=== PATIENT | female | born 1950 | race Hispanic/Latino ===

== ENCOUNTER 2017-11-09 09:43 | Observation (INO) | payer MEDICARE, OTHER ==
--- NOTE | 2017-11-09 10:53 | ED PDOC ---
HPI: General Adult Time Seen by Provider: 11/09/17 10:31 Chief Complaint (Nursing): Chest Pain History Per: Patient Additional Complaint(s): Pt. states on Thursday she developed diffuse generalized weakness and yesterday at noon time she developed mid-sternal chest pain. Pt. states she was doing a "puzzle" sitting down when she felt the pain. Pain was minimal yesterday but this morning upon awakening pain became worse. She also developed SOB upon walking from her room to the kitchen which she is normally able to do without difficulty. Pt. states she sat down and pain/SOB improved. Further reports she took 2 tabs of aspirin which she swallowed. Further reports her visiting RN advised her to call 911 and come to ED. En route to ED pt. was given 2 chewable Aspirins as per patient. Pt. has never had a stress test done. Denies cough, fever, abdominal pain, headache, numbness, tingling, N/V. Past Medical History Reviewed: Historical Data, Nursing Documentation, Vital Signs Vital Signs: Last Vital Signs Temp 98.6 F 11/09/17 20:02 Pulse 86 11/09/17 20:02 Resp 20 11/09/17 20:02 BP 94/65 L 11/09/17 20:02 Pulse Ox 95 11/09/17 20:02 - Medical History PMH: [place]'s Disease, Bipolar Disorder, Hypercholesterolemia, Schizophrenia - Surgical History Surgical History: Cholecystectomy Other surgeries: hysterectomy - Family History Family History: States: [place] (brother of "massive heart attack" in his 40's) - Living Arrangements Living Arrangements: With Family - Social History Ex-Smoker (has not smoked in the last 12 months): Yes Drugs: Denies - Home Medications Home Medications: Ambulatory Orders Medication Instructions Recorded Acetaminophen with Codeine 1 tab PO DAILY 11/09/17 [Tylenol with Codeine #3 Tablet] Atorvastatin [Lipitor] 20 mg PO DAILY 11/09/17 Fenofibrate,Micronized 134 mg PO HS 11/09/17 [Fenofibrate] Hydrocortisone [Cortef] 20 mg PO HS 11/09/17 Hydrocortisone [Cortef] 30 mg PO QAM 11/09/17 Levocetirizine Dihydrochloride 5 mg PO DAILY 11/09/17 [Xyzal] Levothyroxine [Synthroid] 25 mg PO DAILY 11/09/17 Lurasidone HCl [Latuda] 20 mg PO QAM 11/09/17 Lurasidone HCl [Latuda] 80 mg PO HS 11/09/17 Midodrine [Proamatine] 5 mg PO Q12 11/09/17 Multivitamin [Daily Bharat] 1 tab PO DAILY 11/09/17 Omeprazole [Omeprazole] 40 mg PO DAILY 11/09/17 Oxybutynin [Ditropan Tab] 5 mg PO Q12 11/09/17 Quetiapine Fumarate [Quetiapine 800 mg PO HS 11/09/17 Fumarate ER] Sertraline [Zoloft] 200 mg PO QAM 11/09/17 Trazodone HCl [Trazodone HCl] 150 mg PO HS 11/09/17 Vitamin E [Vitamin E 400 Units Cap] 400 unit PO DAILY 11/09/17 - Allergies Allergies/Adverse Reactions: Allergies Allergy/AdvReac Type Severity Reaction Status Date / Time No Known Allergies Allergy Unverified 06/06/14 11:01 Review of Systems ROS Statement: Except As Marked, All Systems Reviewed And Found Negative Constitutional: Positive for: Weakness Cardiovascular: Positive for: Chest Pain Respiratory: Positive for: SOB with Exertion Physical Exam - Reviewed Nursing Documentation Reviewed: Yes Vital Signs Reviewed: Yes - Physical Exam Appears: Positive for: Well, Non-toxic, No Acute Distress Head Exam: Positive for: ATRAUMATIC, NORMAL INSPECTION, NORMOCEPHALIC Skin: Positive for: Normal Color, Warm. Negative for: Rash Eye Exam: Positive for: EOMI, Normal appearance, PERRL ENT: Positive for: Normal ENT Inspection Neck: Positive for: Normal, Painless ROM Cardiovascular/Chest: Positive for: Regular Rate, Rhythm Respiratory: Positive for: CNT, Normal Breath Sounds Gastrointestinal/Abdominal: Positive for: Normal Exam, Soft. Negative for: Tenderness Back: Positive for: Normal Inspection Extremity: Positive for: Normal ROM Neurologic/Psych: Positive for: Alert, Oriented, Other (equal diagram clerk strength b/l) . Negative for: Aphasia, Facial Droop - Laboratory Results Result Diagrams: 11/09/17 11:17 11/09/17 11:17 - ECG ECG: Positive for: Interpreted By Me ECG Rhythm: Positive for: Sinus Rhythm. Negative for: ST/T Changes Rate: 85 O2 Sat by Pulse Oximetry: 97 - Radiology X-Ray: Interpreted by Me (CXR) X-Ray Interpretation: No Acute Disease - Progress ED Course And Treament: Labs, CXR ordered. Pt. placed on breaker oiler. 1209 CT head w/o contrast: Age related neuro degenerative changes are reiterated without acute intracranial findings as discussed above. Right frontal chronic lacune reiterated as well. 1253 Case d/w Dr Farfan, covering for Dr. Payton, and arrangements made for 23 hr observation. Disposition - Clinical Impression Clinical Impression: Chest pain - Patient ED Disposition Is Patient to be Admitted: Yes - Disposition Disposition Time: 12:53 Condition: STABLE - Pt Status Changed To: Hospital Disposition Of: Observation
[2017-11-09 11:25] LABS: BASO # 0.1 K/uL (0.0-0.2); BASO % 0.6 % (0.0-2.0); EOS # 0.2 K/uL (0.0-0.7); EOS % 2.6 % (0.0-4.0); HEMOGLOBIN 15.3 g/dL (12.0-16.0); LYMPH # 2.5 K/uL (1.0-4.3); LYMPH % 25.3 % (20.0-40.0); MEAN CELL VOLUME 88.3 fl (81.0-99.0); MEAN CORPUSCULAR HEMOGLOBIN 29.8 pg (27.0-31.0); MEAN CORPUSCULAR HGB CONC 33.7 g/dL (33.0-37.0); MONO # 0.6 K/uL (0.0-0.8); MONO % 6.4 % (0.0-10.0); NEUT # 6.3 K/uL (1.8-7.0); NEUT % 65.1 % (50.0-75.0); NRBC % 0.1 % (0.0-0.0); RBC 5.14 Mil/uL (3.80-5.20); WHITE BLOOD COUNT 9.7 K/uL (4.8-10.8)
--- NOTE | 2017-11-09 11:35 | CT ---
PROCEDURE: CT HEAD WITHOUT CONTRAST. HISTORY: weakness COMPARISON: Unenhanced head CT 01/23/2015 TECHNIQUE: Axial computed tomography images were obtained through the head/brain without intravenous contrast. Radiation dose: Total exam DLP = 815.44 mGy-cm. This CT exam was performed using one or more of the following dose reduction techniques: Automated exposure control, adjustment of the mA and/or kV according to patient size, and/or use of iterative reconstruction technique. FINDINGS: HEMORRHAGE: No intracranial hemorrhage. BRAIN: Diffuse cerebral atrophy and chronic microangiopathy are reiterated. No mass is identified or suspicious extra-axial fluid collection in the midline brain and appears diffusely unremarkable nevertheless. Posterior fossa contents remain unremarkable including the brainstem. A likely chronic lacune is again seen the right frontal vertex laterally. VENTRICLES: Unremarkable. No hydrocephalus. CALVARIUM: Unremarkable. PARANASAL SINUSES: Limited bilateral ethmoid sinus disease identified. MASTOID AIR CELLS: Unremarkable as visualized. No inflammatory changes. OTHER FINDINGS: None. IMPRESSION: Age related neuro degenerative changes are reiterated without acute intracranial findings as discussed above. Right frontal chronic lacune reiterated as well. Follow up CT or MRI are available if clinically warranted.
[2017-11-09 11:56] LABS: ALB/GLOB RATIO 1.3 (1.0-2.1); ALBUMIN 4.5 g/dL (3.5-5.0); ALT/SGPT 30 U/L (9-52); AST/SGOT 37 U/L (14-36); BLOOD UREA NITROGEN 30 mg/dl (7-17); CALCIUM 10.1 mg/dL (8.4-10.2); GFR AFRICAN-AMERICAN > 60; GFR NON-AFRICAN AMERICAN > 60
--- NOTE | 2017-11-09 12:12 | RAD ---
HISTORY: chest pain COMPARISON: Comparison chest 11/21/2010 FINDINGS: LUNGS: No active pulmonary disease. PLEURA: No significant pleural effusion identified, no pneumothorax apparent. CARDIOVASCULAR: Normal. OSSEOUS STRUCTURES: No significant abnormalities. VISUALIZED UPPER ABDOMEN: Normal. OTHER FINDINGS: None. IMPRESSION: No active disease.
--- NOTE | 2017-11-09 14:00 | CP.PCM.HP ---
History of Present Illness - History of Present Illness History of Present Illness: 67 yo female with history of Davie's Disease and HLD came in because of mid- sternal chest pain, non-radiating, on and off, lasting for several minutes since yesterday. Condition was associated with mild SOB and anxiety. Denied fever or chills or diaphoresis. There was no nausea or vomiting. Present on Admission - Present on Admission Any Indicators Present on Admission: No History of DVT/PE: No History of Uncontrolled Diabetes: No Urinary Catheter: No Decubitus Ulcer Present: No Review of Systems - Review of Systems All systems: reviewed and no additional remarkable complaints except (aside from those mentioned above, 12 point system review were negative by me) Past Patient History - Past Medical History & Family History Past Medical History?: Yes - Past Social History Smoking Status: Former Smoker Alcohol: None Drugs: Denies - CARDIAC Hx Hypercholesterolemia: Yes - PULMONARY Hx Respiratory Disorders: No - NEUROLOGICAL Hx Neurological Disorder: No - HEENT Hx HEENT Problems: No - RENAL Hx Chronic Kidney Disease: No - ENDOCRINE/METABOLIC Hx Endocrine Disorders: Yes Other/Comment: GENOVEVA'S DISEASE - HEMATOLOGICAL/ONCOLOGICAL Hx Blood Disorders: No - INTEGUMENTARY Hx Dermatological Problems: No - MUSCULOSKELETAL/RHEUMATOLOGICAL Hx Musculoskeletal Disorders: No - GASTROINTESTINAL Hx Gastrointestinal Disorders: No - GENITOURINARY/GYNECOLOGICAL Hx Genitourinary Disorders: No - PSYCHIATRIC Hx Anxiety: Yes Hx Bipolar Disorder: Yes Hx Schizophrenia: Yes - SURGICAL HISTORY Hx Cholecystectomy: Yes Hx Hysterectomy: Yes - ANESTHESIA Hx Anesthesia: Yes Hx Anesthesia Reactions: No Hx Malignant Hyperthermia: No Meds Allergies/Adverse Reactions: Allergies Allergy/AdvReac Type Severity Reaction Status Date / Time No Known Allergies Allergy Unverified 06/06/14 11:01 Physical Exam - Constitutional Appears: No Acute Distress, Other (morbidly obese) - Head Exam Head Exam: ATRAUMATIC - Eye Exam Eye Exam: absent: Scleral icterus - ENT Exam ENT Exam: Mucous Membranes Moist - Neck Exam Neck exam: Negative for: Meningismus - Respiratory Exam Respiratory Exam: absent: Rales, Rhonchi, Wheezes, Respiratory Distress - Cardiovascular Exam Cardiovascular Exam: REGULAR RHYTHM, +S1, +S2 - GI/Abdominal Exam GI & Abdominal Exam: Soft. absent: Tenderness - Rectal Exam Rectal Exam: Deferred - Extremities Exam Extremities exam: Negative for: calf tenderness, pedal edema - Back Exam Back exam: absent: tenderness - Neurological Exam Neurological exam: Alert, Oriented x3 - Psychiatric Exam Psychiatric exam: Normal Affect - Skin Skin Exam: Dry, Intact Results - Vital Signs Recent Vital Signs: Last Vital Signs Temp 98 F 11/09/17 10:05 Pulse 85 11/09/17 12:57 Resp 20 11/09/17 10:05 BP 140/86 11/09/17 10:05 Pulse Ox 97 11/09/17 12:57 - Labs Result Diagrams: 11/09/17 11:17 11/09/17 11:17 Labs: Laboratory Results - last 24 hr 11/09/17 11/09/17 11:17 11:17 WBC 9.7 RBC 5.14 Hgb 15.3 Hct 45.3 MCV 88.3 MCH 29.8 MCHC 33.7 RDW 14.0 Plt Count 289 MPV 9.0 Neut % (Auto) 65.1 Lymph % (Auto) 25.3 [place] % (Auto) 6.4 Eos % (Auto) 2.6 Baso % (Auto) 0.6 Neut # (Auto) 6.3 Lymph # (Auto) 2.5 [place] # (Auto) 0.6 Eos # (Auto) 0.2 Baso # (Auto) 0.1 Sodium 143 Potassium 4.6 Chloride 99 Carbon Dioxide 26 Anion Gap 23 H BUN 30 H Creatinine 0.7 Est GFR ( Amer) > 60 Est GFR (Non-Af Amer) > 60 Random Glucose 79 Calcium 10.1 Total Bilirubin 0.5 AST 37 H ALT 30 Alkaline Phosphatase 57 Troponin I < 0.0120 Total Protein 7.9 Albumin 4.5 Globulin 3.4 Albumin/Globulin Ratio 1.3 Assessment & Plan - Assessment and Plan (Free Text) Assessment: 67 yo female with history of Davie's Disease and HLD came in because of mid- sternal chest pain, non-radiating, on and off, lasting for several minutes since yesterday. Condition was associated with mild SOB and anxiety. Denied fever or chills or diaphoresis. There was no nausea or vomiting. 1. Chest Pain serial Troponin and EKG continue ASA. statin 2. Genoveva's Disease continue Hydrocortisone 3. 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 Hypothyroidism continue Levothyroxine TSH level
[2017-11-09] MEDS ORDERED: Pneumococcal 23-Valent Vaccine IM ONE (17:54)
--- NOTE | 2017-11-09 19:49 | CARD ---
APPROVED REPORT EKG Measurement Heart [id number] <Conclusion> Normal sinus rhythm Possible Inferior infarct, age undetermined Abnormal ECG
[2017-11-09] MEDS ORDERED: LURASIDONE HCL 80 MG PO SCH (22:00)
[2017-11-10 05:50] LABS: BASO % 0.5 % (0.0-2.0); EOS # 0.3 K/uL (0.0-0.7); EOS % 3.9 % (0.0-4.0); HEMOGLOBIN 14.6 g/dL (12.0-16.0); LYMPH # 2.4 K/uL (1.0-4.3); LYMPH % 28.9 % (20.0-40.0); MEAN CELL VOLUME 88.7 fl (81.0-99.0); MEAN CORPUSCULAR HEMOGLOBIN 29.4 pg (27.0-31.0); MEAN CORPUSCULAR HGB CONC 33.2 g/dL (33.0-37.0); MEAN PLATELET VOLUME 8.8 fl (7.2-11.7); MONO # 0.6 K/uL (0.0-0.8); MONO % 7.2 % (0.0-10.0); NEUT # 4.9 K/uL (1.8-7.0); NEUT % 59.5 % (50.0-75.0); NRBC % 0.4 % (0.0-0.0); RBC 4.95 Mil/uL (3.80-5.20); RED CELL DISTRIBUTION WIDTH 13.8 % (11.5-14.5); WHITE BLOOD COUNT 8.3 K/uL (4.8-10.8)
[2017-11-10 06:02] LABS: BLOOD UREA NITROGEN 24 mg/dl (7-17); CALCIUM 9.7 mg/dL (8.4-10.2); GFR AFRICAN-AMERICAN > 60; GFR NON-AFRICAN AMERICAN > 60
[2017-11-10] MEDS ORDERED: Levothyroxine 25 MCG TAB PO SCH (06:30)
[2017-11-10 07:59] VITALS: RESP 18
[2017-11-10] MEDS ORDERED: Pantoprazole 40 mg EC Tab PO SCH ×2 (09:00)
[2017-11-10] MEDS ORDERED: Multivitamin With Minerals Tab PO SCH (09:00)
[2017-11-10] MEDS ORDERED: Acetaminophen-Codeine 300/30 mg Tab PO SCH (09:00)
[2017-11-10] MEDS ORDERED: LURASIDONE HCL 20 MG PO SCH (09:00)
--- NOTE | 2017-11-10 10:33 | CP.PCM.DIS ---
Provider - Provider Date of Admission: 11/09/17 13:00 Attending physician: Sidney Farfan MD Time Spent in preparation of Discharge (in minutes): 25 Diagnosis - Discharge Diagnosis (1) Chest pain Status: Acute Comment: chest pain free. serial Troponins and EKG negative for ischemic events. continue ASA and statin (2) [place]'s disease Status: Chronic Comment: continue Hydrocortisone supplement (3) HLD (hyperlipidemia) Status: Chronic Comment: continue Lipitor and Fenofibrate (4) Psychosis Status: Chronic Comment: continue Latuda (5) Hypothyroid Status: Chronic Comment: TSH: 2.33. continue Levothyroxine Hospital Course - Lab Results Lab Results: Most Recent Lab Values WBC 8.3 K/uL (4.8-10.8) 11/10/17 04:20 RBC 4.95 Mil/uL (3.80-5.20) 11/10/17 04:20 Hgb 14.6 g/dL (12.0-16.0) 11/10/17 04:20 Hct 43.9 % (34.0-47.0) 11/10/17 04:20 MCV 88.7 fl (81.0-99.0) 11/10/17 04:20 MCH 29.4 pg (27.0-31.0) 11/10/17 04:20 MCHC 33.2 g/dL (33.0-37.0) 11/10/17 04:20 RDW 13.8 % (11.5-14.5) 11/10/17 04:20 Plt Count 249 K/uL (130-400) 11/10/17 04:20 MPV 8.8 fl (7.2-11.7) 11/10/17 04:20 Neut % (Auto) 59.5 % (50.0-75.0) 11/10/17 04:20 Lymph % (Auto) 28.9 % (20.0-40.0) 11/10/17 04:20 [place] % (Auto) 7.2 % (0.0-10.0) 11/10/17 04:20 Eos % (Auto) 3.9 % (0.0-4.0) 11/10/17 04:20 Baso % (Auto) 0.5 % (0.0-2.0) 11/10/17 04:20 Neut # (Auto) 4.9 K/uL (1.8-7.0) 11/10/17 04:20 Lymph # (Auto) 2.4 K/uL (1.0-4.3) 11/10/17 04:20 [place] # (Auto) 0.6 K/uL (0.0-0.8) 11/10/17 04:20 Eos # (Auto) 0.3 K/uL (0.0-0.7) 11/10/17 04:20 Baso # (Auto) 0.0 K/uL (0.0-0.2) 11/10/17 04:20 Sodium 139 mmol/l (132-148) 11/10/17 04:20 Potassium 4.4 MMOL/L (3.6-5.0) 11/10/17 04:20 Chloride 98 mmol/L (98-107) 11/10/17 04:20 Carbon Dioxide 28 mmol/L (22-30) 11/10/17 04:20 Anion Gap 17 (10-20) 11/10/17 04:20 BUN 24 mg/dl (7-17) H 11/10/17 04:20 Creatinine 0.8 mg/dl (0.7-1.2) 11/10/17 04:20 Est GFR ( Amer) > 60 11/10/17 04:20 Est GFR (Non-Af Amer) > 60 11/10/17 04:20 Random Glucose 104 mg/dL (65-105) 11/10/17 04:20 Calcium 9.7 mg/dL (8.4-10.2) 11/10/17 04:20 Total Bilirubin 0.5 mg/dl (0.2-1.3) 11/09/17 11:17 AST 37 U/L (14-36) H 11/09/17 11:17 ALT 30 U/L (9-52) 11/09/17 11:17 Alkaline Phosphatase 57 U/L (38-126) 11/09/17 11:17 Troponin I < 0.0120 ng/mL (0.00-0.120) 11/10/17 04:20 Total Protein 7.9 G/DL (6.3-8.2) 03/19/18 11:17 Albumin 4.5 g/dL (3.5-5.0) 11/09/17 11:17 Globulin 3.4 gm/dL (2.2-3.9) 11/09/17 11:17 Albumin/Globulin Ratio 1.3 (1.0-2.1) 11/09/17 11:17 TSH 3rd Generation 2.33 mIU/ML (0.46-4.68) 11/10/17 04:20 - Hospital Course Hospital Course: 67 yo female with history of [place]'s Disease and HLD came in because of mid- sternal chest pain, non-radiating, on and off, lasting for several minutes a day prior to ER visit. Condition was associated with mild SOB and anxiety. Patient was put on chest pain observation and monitored in telemetry. There was no recurrence of chest pain. Serial Troponins and EKG were negative for ischemic events. Patient was discharged in stable condition. Discharge Exam - Head Exam Head Exam: ATRAUMATIC, NORMAL INSPECTION, NORMOCEPHALIC - Eye Exam Eye Exam: Scleral icterus - ENT Exam ENT Exam: Mucous Membranes Moist - Respiratory Exam Respiratory Exam: absent: Rales, Rhonchi, Wheezes, Respiratory Distress - Cardiovascular Exam Cardiovascular Exam: REGULAR RHYTHM, +S1, +S2 - GI/Abdominal Exam GI & Abdominal Exam: Soft. absent: Tenderness - Rectal Exam Rectal Exam: Deferred - Back Exam Back exam: absent: tenderness - Neurological Exam Neurological exam: Alert, Oriented x3 - Psychiatric Exam Psychiatric exam: Normal Affect - Skin Skin Exam: Dry, Intact Discharge Plan - Follow Up Plan Condition: STABLE Disposition: HOME/ ROUTINE
[2017-11-10 12:18] VITALS: BP 139/84; PULSE 85; TEMP 98.6; O2SAT 95
== END 2017-11-10 12:45 | disposition home or self-care (01) ==
LOC: H.ER 09:43 → H.ERHOLD 13:00 → H.TEL 15:40
DX: R07.89 Other chest pain (principal); E27.1 Primary adrenocortical insufficiency; E03.9 Hypothyroidism, unspecified; E78.5 Hyperlipidemia, unspecified; E78.00 Pure hypercholesterolemia, unspecified; F41.9 Anxiety disorder, unspecified; F31.9 Bipolar disorder, unspecified; Z87.891 Personal history of nicotine dependence; Z23 Encounter for immunization
CPT/HCPCS: 36415; 70450; 71045; 80048; 80053; 84443; 84484; 85025; 90732; 93005; 99285; G0009; G0378

== ENCOUNTER 2017-11-18 08:49 | Observation (INO) | payer MEDICARE, OTHER ==
[2017-11-18 09:11] VITALS: BMI 40.6
[2017-11-18 09:52] LABS: BASO # 0.1 K/uL (0.0-0.2); BASO % 0.5 % (0.0-2.0); EOS # 0.3 K/uL (0.0-0.7); EOS % 2.6 % (0.0-4.0); LYMPH # 2.5 K/uL (1.0-4.3); LYMPH % 22.2 % (20.0-40.0); MEAN CELL VOLUME 86.8 fl (81.0-99.0); MEAN CORPUSCULAR HEMOGLOBIN 29.5 pg (27.0-31.0); MEAN CORPUSCULAR HGB CONC 34.1 g/dL (33.0-37.0); MEAN PLATELET VOLUME 8.5 fl (7.2-11.7); MONO # 0.9 K/uL (0.0-0.8); MONO % 7.9 % (0.0-10.0); NEUT # 7.6 K/uL (1.8-7.0); NEUT % 66.8 % (50.0-75.0); RBC 5.42 Mil/uL (3.80-5.20); RED CELL DISTRIBUTION WIDTH 13.5 % (11.5-14.5); WHITE BLOOD COUNT 11.3 K/uL (4.8-10.8)
[2017-11-18 09:55] LABS: INR 1.1 (0.9-1.2); PARTIAL THROMBOPLASTIN TIME 32.7 Seconds (25.6-37.1)
[2017-11-18 10:08] LABS: B-TYPE NATRIURETIC PEPTIDE 345 pg/ml (0-900)
[2017-11-18 10:11] LABS: ALB/GLOB RATIO 1.3 (1.0-2.1); ALBUMIN 4.5 g/dL (3.5-5.0); ALT/SGPT 49 U/L (9-52); AST/SGOT 46 U/L (14-36); BLOOD UREA NITROGEN 28 mg/dl (7-17); CALCIUM 9.9 mg/dL (8.4-10.2); GFR AFRICAN-AMERICAN > 60; GFR NON-AFRICAN AMERICAN > 60
--- NOTE | 2017-11-18 10:11 | ED PDOC ---
HPI: SOB/CHF/COPD Time Seen by Provider: 11/18/17 09:05 Chief Complaint (Nursing): Shortness Of Breath Chief Complaint (Provider): SOB, vomiting History Per: Patient History/Exam Limitations: other (poor historian) Current Symptoms Are (Timing): Still Present Quality: Tightness Exacerbating Factor(s): Exertion Current Respiratory Medications: See Home Med List Severity: Moderate Recently: Hospitalized Additional Complaint(s): 67yo female c/o SOB, "not feeling well", persistent intolerance of food or drink w vomiting/coughing and generalized weakness. Denies chest pain, fever, headache, sore throat, cough, abdominal pain or syncope. Old charts reviewed revealing recent admission for chest pain which she states resolved and has not returned. Past Medical History Reviewed: Historical Data Vital Signs: Last Vital Signs Temp 98 F 11/20/17 08:00 Pulse 85 11/20/17 09:00 Resp 20 11/20/17 08:00 BP 115/71 11/20/17 08:00 Pulse Ox 96 11/20/17 08:00 - Medical History PMH: [place]'s Disease, Anxiety, Bipolar Disorder, Hypercholesterolemia, Schizophrenia Denies: HIV, Chronic Kidney Disease - Surgical History Surgical History: Cholecystectomy - Family History Family History: States: [place] (brother of "massive heart attack" in his 40's) - Living Arrangements Living Arrangements: With Family - Social History Current smoker - smoking cessation education provided: No Alcohol: None - Home Medications Home Medications: Ambulatory Orders Medication Instructions Recorded Acetaminophen with Codeine 1 tab PO DAILY 11/09/17 [Tylenol with Codeine #3 Tablet] Atorvastatin [Lipitor] 20 mg PO DAILY 11/09/17 Fenofibrate,Micronized 134 mg PO HS 11/09/17 [Fenofibrate] Levocetirizine Dihydrochloride 5 mg PO DAILY 11/09/17 [Xyzal] Levothyroxine [Synthroid] 25 mg PO DAILY 11/09/17 Lurasidone HCl [Latuda] 20 mg PO QAM 11/09/17 Lurasidone HCl [Latuda] 80 mg PO HS 11/09/17 Midodrine [Proamatine] 5 mg PO Q12 11/09/17 Multivitamin [Daily Bharat] 1 tab PO DAILY 11/09/17 Omeprazole 40 mg PO DAILY 11/09/17 Oxybutynin [Ditropan Tab] 5 mg PO Q12 11/09/17 Quetiapine Fumarate [Quetiapine 800 mg PO HS 11/09/17 Fumarate ER] Sertraline [Zoloft] 200 mg PO QAM 11/09/17 Trazodone HCl 150 mg PO HS 11/09/17 Cholecalciferol 400 Intl Units 400 unit PO DAILY 11/18/17 [Vitamin D 400 Intl Units Tab] Valbenazine Tosylate [Ingrezza] 40 mg PO DAILY 11/18/17 Ciprofloxacin HCl [Cipro] 500 mg PO Q12 #14 tablet 11/20/17 Hydrocortisone [Cortef] 30 mg PO HS #30 tab 11/20/17 Hydrocortisone [Cortef] 40 mg PO QAM #30 tab 11/20/17 Saccharomyces Boulardi [Florastor] 250 mg PO DAILY #5 cap 11/20/17 - Allergies Allergies/Adverse Reactions: Allergies Allergy/AdvReac Type Severity Reaction Status Date / Time No Known Allergies Allergy Verified 11/18/17 09:13 Review of Systems Constitutional: Positive for: Weakness. Negative for: Fever, Chills ENT: Negative for: Throat Pain Cardiovascular: Positive for: Palpitations, Orthopnea. Negative for: Chest Pain Respiratory: Positive for: Shortness of Breath, SOB with Exertion. Negative for : Cough Gastrointestinal: Positive for: Nausea, Vomiting. Negative for: Abdominal Pain , Diarrhea Genitourinary Female: Negative for: Dysuria Musculoskeletal: Negative for: Neck Pain, Back Pain Skin: Negative for: Rash, Lesions, Jaundice Neurological: Negative for: Weakness, Numbness Psych: Positive for: Anxiety. Negative for: Suicidal ideation Physical Exam - Reviewed Nursing Documentation Reviewed: Yes Vital Signs Reviewed: Yes - Physical Exam Appears: Positive for: Well, Non-toxic, No Acute Distress Head Exam: Positive for: ATRAUMATIC, NORMAL INSPECTION, NORMOCEPHALIC Skin: Positive for: Normal Color, Warm, DRY Eye Exam: Positive for: EOMI, Normal appearance, PERRL ENT: Positive for: Normal ENT Inspection Neck: Positive for: Normal, Painless ROM Cardiovascular/Chest: Positive for: Regular Rate, Rhythm Respiratory: Positive for: CNT, Normal Breath Sounds Gastrointestinal/Abdominal: Positive for: Bowel Sounds, Soft. Negative for: Tenderness Back: Positive for: Normal Inspection Extremity: Positive for: Normal ROM, Swelling (trace b/l LE) Neurologic/Psych: Positive for: Alert, Oriented. Negative for: Motor/Sensory Deficits - Laboratory Results Result Diagrams: 11/20/17 11:22 11/20/17 11:22 - ECG ECG: Positive for: Interpreted By Me ECG Rhythm: Positive for: Sinus Tachycardia, Nonspecific Changes Rate: 121 O2 Sat by Pulse Oximetry: 97 Pulse Ox Interpretation: Normal Medical Decision Making Medical Decision Making: patient w resting tachycardia, prior charts reviewed no CT imaging chest labs reviewed, reveal evidence of mild dehydration w elev BUN, normal trop, normal BNP, mild leukocytosis, flu neg CTA chest reveals no PE, some emphysematous changes. No pneumonia. Difficult to obtain urine straight cath as began to have diarrhea. +orthostasis, IVF continued UA on straight cath reveals evidence small UTI, rocephin initiated after Urine and blood cultures obtained mild elev lactate 2.[address] Payton for further workup. Patient cannot effectively ambulate, is orthostatic and evidence of severe sepsis is present. Disposition - Clinical Impression Clinical Impression: Severe sepsis, Dyspnea - Patient ED Disposition Is Patient to be Admitted: Yes - Disposition Disposition Time: 11:40 Condition: FAIR - Pt Status Changed To: Hospital Disposition Of: Inpatient - Admit Certification Admit to Inpatient:: After my assessment, the patient will require hospitalization for at least two midnights. This is because of the severity of symptoms shown, intensity of services needed, and/or the medical risk in this patient being treated as an outpatient. - POA Present On Arrival: None
--- NOTE | 2017-11-18 10:16 | RAD ---
HISTORY: SOB COMPARISON: 11/09/2017 FINDINGS: LUNGS: No active pulmonary disease. PLEURA: No significant pleural effusion identified, no pneumothorax apparent. CARDIOVASCULAR: Normal. OSSEOUS STRUCTURES: No significant abnormalities. VISUALIZED UPPER ABDOMEN: Normal. OTHER FINDINGS: None. IMPRESSION: No active disease.
[2017-11-18] MEDS ORDERED: Iodixanol 320 MG/ML 100 ML BOTTLE IV ONE (10:36)
--- NOTE | 2017-11-18 12:00 | CT ---
PROCEDURE: CT Chest with contrast (Pulmonary Angiogram) HISTORY: SOB resting tachycardia COMPARISON: None available. TECHNIQUE: Axial computed tomography images were obtained of the chest in the pulmonary arterial phase of enhancement. Coronal and sagittal reformatted images were created and reviewed. Intravenous contrast dose: 98 mL Visipaque 320 Radiation dose: Total exam DLP = 404.09 mGy-cm. This CT exam was performed using one or more of the following dose reduction techniques: Automated exposure control, adjustment of the mA and/or kV according to patient size, and/or use of iterative reconstruction technique. FINDINGS: PULMONARY ARTERIES: Unremarkable. No pulmonary embolism. AORTA: No acute findings. No thoracic aortic aneurysm. LUNGS: Mild centrilobular pulmonary emphysema seen predominantly in the lung apices. No infiltrate. No pulmonary mass. PLEURAL SPACES: Unremarkable. No effusion or pneuomothorax. HEART: Unremarkable. No cardiomegaly. No significant pericardial effusion. LYMPH NODES: No lymphadenopathy. BONES, CHEST WALL: Unremarkable. No fracture or destructive lesion OTHER FINDINGS: Status post cholecystectomy. Surgical clips in gallbladder fossa. IMPRESSION: No evidence of pulmonary embolism. Mild centrilobular pulmonary emphysema. Otherwise unremarkable examination.
[2017-11-18] MEDS ORDERED: Sodium Chloride 0.9% 1,000 ML IV STA (12:54)
[2017-11-18] MEDS ORDERED: Albuterol-Ipratrop 3 mg / 0.5 (3 ml) UD INH STA (12:54)
[2017-11-18] MEDS ORDERED: Albuterol-Ipratrop 3 mg / 0.5 (3 ml) UD ONE (13:05)
[2017-11-18 14:03] LABS: VENOUS BLOOD GAS BASE EXCESS -0.5 mmol/L (0.0-2.0); VENOUS BLOOD GAS PCO2 39 mmHg (40-60); VENOUS BLOOD GAS PO2 66 mm/Hg (30-55)
[2017-11-18 16:23] LABS: SQUAMOUS EPITHIAL 1 /hpf (0-5); URINE BACTERIA RARE (<OCC); URINE BILIRUBIN SMALL (NEGATIVE); URINE BLOOD NEGATIVE (NEGATIVE); URINE CLARITY CLOUDY (Clear); URINE COLOR AMBER (YELLOW); URINE GLUCOSE (UA) NEG (Normal); URINE HYALINE CAST 0-2 /hpf (0-2); URINE LEUKOCYTE ESTERASE SMALL Leu/uL (Negative); URINE PROTEIN 30 mg/dL (NEGATIVE)
[2017-11-18 16:58] LABS: VENOUS BLOOD GAS BASE EXCESS -0.9 mmol/L (0.0-2.0); VENOUS BLOOD GAS PCO2 49 mmHg (40-60); VENOUS BLOOD GAS PO2 31 mm/Hg (30-55); VENOUS BLOOD PH 7.33 (7.32-7.43)
[2017-11-18] MEDS ORDERED: cefTRIAXone (Rocephin) 1 gm Inj ONE (17:16)
--- NOTE | 2017-11-18 19:27 | CARD ---
APPROVED REPORT EKG Measurement Heart [id number] <Conclusion> Sinus tachycardia Inferior infarct, age undetermined Abnormal ECG
[2017-11-18] MEDS: Sodium Chloride 0.9% 1,000 ML IV SCH (22:15)
[2017-11-18] MEDS: LURASIDONE HCL 80 MG PO SCH (23:09)
[2017-11-18] MEDS: QUETIAPINE FUMARATE 800 MG PO SCH (23:10)
[2017-11-19] MEDS: Levothyroxine 25 MCG TAB PO SCH (05:36)
[2017-11-19] MEDS: LURASIDONE HCL 20 MG PO SCH (08:44)
[2017-11-19] MEDS: Multivitamin With Minerals Tab PO SCH (08:45)
[2017-11-19] MEDS: Pantoprazole 40 mg EC Tab PO SCH (08:45)
[2017-11-19] MEDS: Acetaminophen-Codeine 300/30 mg Tab PO SCH (08:47)
[2017-11-19] MEDS: VALBENAZINE TOSYLATE 40 MG PO SCH (08:50)
[2017-11-19] MEDS: Cholecalciferol 400 Intl Units Tab PO SCH (08:51)
[2017-11-19] MEDS: Sodium Chloride 0.9% 1,000 ML IV SCH (12:34)
--- NOTE | 2017-11-19 14:19 | HP ---
HISTORY OF PRESENT ILLNESS: The patient is seen today on 11/19/2017. She is a 67-year-old female with history of multiple medical problems including chronic adrenal insufficiency as well as hypothyroidism. The patient presented with symptoms of generalized weakness, frequent vomiting, and difficulty to ambulate and dizziness. The patient was evaluated in the Emergency Room and she was found to be hypotensive and tachycardic. The patient was given fluids and admitted for further management. REVIEW OF SYSTEMS: Other review of systems is negative. ALLERGIES: NO KNOWN ALLERGIES. MEDICATIONS: As per MAR. PAST MEDICAL HISTORY: Chronic adrenal insufficiency, hypothyroidism, long-standing psychiatric history. FAMILY HISTORY: Noncontributory. SOCIAL HISTORY: No history of smoking, EtOH or substance abuse. PHYSICAL EXAMINATION: GENERAL: The patient is in bed, comfortable at the time of this examination. VITAL SIGNS: Blood pressure 107/61, temperature 98.6, respiratory rate 18, and pulse 119. HEENT: Pupils equal, reactive to light. Normal-appearing mucosa of the conjunctivae, oropharyngeal and nasal membrane mucosa. NECK: Supple. No JVD. No carotid bruit. No lymph nodes. No thyromegaly. CHEST AND LUNGS: Bilateral symmetrical expansion. Good air exchange. No rales, no rhonchi. CARDIOVASCULAR: PMI not localized. S1 and S2. No additional sounds. ABDOMEN: Normoactive bowel sounds. No tenderness. No organomegaly. No masses. EXTREMITIES: No cyanosis, no clubbing, no edema. CENTRAL NERVOUS SYSTEM: Alert, awake, and oriented x2. No neurological deficits could be appreciated. ASSESSMENT: [id number] adrenal insufficiency with hypotension, tachycardia, vomiting, and orthostatic changes. PLAN: We will increase the hydrocortisone and resume Florinef. Physical therapy. Resume the patient's home medications. Villa Payton MD
[2017-11-19] MEDS: QUETIAPINE FUMARATE 800 MG PO SCH (21:37)
[2017-11-19] MEDS: LURASIDONE HCL 80 MG PO SCH (21:38)
[2017-11-20 09:00] VITALS: BP 115/71; RESP 20; TEMP 98
[2017-11-20] MEDS: VALBENAZINE TOSYLATE 40 MG PO SCH (09:14)
[2017-11-20] MEDS: Cholecalciferol 400 Intl Units Tab PO SCH (09:15)
[2017-11-20] MEDS: Multivitamin With Minerals Tab PO SCH (09:15)
[2017-11-20] MEDS: Pantoprazole 40 mg EC Tab PO SCH (09:16)
[2017-11-20] MEDS: Levothyroxine 25 MCG TAB PO SCH (09:18)
[2017-11-20] MEDS: Acetaminophen-Codeine 300/30 mg Tab PO SCH (09:37)
[2017-11-20] MEDS: LURASIDONE HCL 20 MG PO SCH (09:38)
[2017-11-20 11:31] LABS: HEMOGLOBIN 12.3 g/dL (12.0-16.0); MEAN CELL VOLUME 88.1 fl (81.0-99.0); MEAN CORPUSCULAR HEMOGLOBIN 29.3 pg (27.0-31.0); MEAN CORPUSCULAR HGB CONC 33.2 g/dL (33.0-37.0); RBC 4.2 Mil/uL (3.80-5.20); RED CELL DISTRIBUTION WIDTH 13.6 % (11.5-14.5)
[2017-11-20 11:41] LABS: BLOOD UREA NITROGEN 11 mg/dl (7-17); CALCIUM 8.8 mg/dL (8.4-10.2); GFR AFRICAN-AMERICAN > 60; GFR NON-AFRICAN AMERICAN > 60
[2017-11-20] MEDS ORDERED: Ciprofloxacin 400mg/200ml D5W 400 MG/200 ML BAG IVPB ONE (11:41)
--- NOTE | 2017-11-21 01:17 | DS ---
REASON FOR ADMISSION: This is a 67-year-old female with history of multiple medical problems who was admitted for acute exacerbation of chronic adrenal insufficiency. COURSE OF HOSPITALIZATION: The patient was admitted to medical floor and hydrocortisone dose was increased to 40 mg hydrocortisone in the morning and 30 mg at night. The patient was also given IV fluids. The patient responded well. Urinalysis showed E. coli that is sensitive to Cipro. The patient was started first dose of Cipro and she was discharged on Cipro 500 mg twice a day in addition to probiotics. The patient was discharged, asymptomatic and wants to go home to spent the at home. FINAL DIAGNOSES: Acute on chronic adrenal insufficiency with orthostatic hypotension, dehydration, urinary tract infection and hypothyroidism. [facility] MD Fito
[2017-11-22 12:33] VITALS: PULSE 121; O2SAT 97
== END 2017-11-20 14:29 | disposition home health service (06) ==
LOC: H.ER 08:49 → H.ERHOLD 13:04 → H.TEL 18:39
PROVIDERS: ADMIT Internal Medicine; ATTEND Internal Medicine
DX: E27.1 Primary adrenocortical insufficiency (principal); E78.00 Pure hypercholesterolemia, unspecified; F20.9 Schizophrenia, unspecified; F31.9 Bipolar disorder, unspecified; E86.0 Dehydration; E03.9 Hypothyroidism, unspecified; N39.0 Urinary tract infection, site not specified; B96.20 Unspecified Escherichia coli [E. coli] as the cause of diseases classified elsewhere; I95.1 Orthostatic hypotension; F41.9 Anxiety disorder, unspecified
CPT/HCPCS: 36415; 71045; 71275; 80048; 80053; 81003; 82803; 83880; 84484; 85025; 85027; 85610; 85730; 87040; 87086; 87181; 87804; 93005; 94640; 96365; 96367; 96372; 97161; 99285; G0378; G8978; G8979; J0696; J0744; J1644; J7040; Q9967